=== PATIENT | male | born 1970 | race Caucasian/White ===

== ENCOUNTER 2019-12-23 17:51 | Emergency (ER) | payer OTHER | END 2019-12-23 18:56 | disposition home or self-care (01) | LOC: M ED 17:51 | DX: T63.441A Toxic effect of venom of bees, accidental (unintentional), initial encounter (principal); X58.XXXA Exposure to other specified factors, initial encounter; Y92.89 Other specified places as the place of occurrence of the external cause; Z91.030 Bee allergy status ==

== ENCOUNTER → 2021-06-16 | Outpatient (REF) | LOC: M LABSMTC 13:29 | PROVIDERS: ATTEND Family Medicine | DX: Z20.822 Contact with and (suspected) exposure to COVID-19 (principal) ==